=== PATIENT | male | born 1940 | race Caucasian/White ===

== ENCOUNTER 2019-08-26 07:47 | Inpatient (IN) | payer MEDICARE, BC ==
--- NOTE | 2019-08-19 10:31 | HP ---
AMENDED REPORT NOW INCLUDES DESIGNATED COSIGNER HISTORY AND PHYSICAL: DATE OF SURGERY: 08/26/19 DATE OF OFFICE VISIT: 08/18/19 SURGEON: Vernell Tejada MD * (DICTATED BY ZORA PATEL) PROCEDURE: Right total knee arthroplasty. CHIEF COMPLAINT: Right knee pain. HISTORY OF PRESENT ILLNESS: Mr. 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 PAST MEDICAL HISTORY: 1. Macular degeneration. 2. Hypertension. 3. High cholesterol. PAST SURGICAL HISTORY: 1. Right knee arthroscopy. 2. Hernia repair. 3. Right rotator cuff repair. 4. Blepharoplasty. 5. Right ankle surgery. CURRENT MEDICATIONS: 1. Lisinopril 20 mg a day. 2. Atorvastatin calcium 10 mg a day. 3. Amlodipine 2.5 mg a day. 4. Multivitamin. 5. AREDS 2. 6. CoQ10. ALLERGIES: No known drug allergies. FAMILY HISTORY: Cancer. SOCIAL HISTORY: This 79-year-old gentleman lives at [place]. He does not smoke. REVIEW OF SYSTEMS: A complete 14-point review of systems was reviewed with the patient. It is all negative and noncontributory. He denies history of a DVT, PE, hepatitis, HIV, or anesthesia problems. PHYSICAL EXAMINATION GENERAL: He is well-developed, well-nourished in no acute distress. VITAL SIGNS: He stands 69 inches tall, weighs 163 pounds. His blood pressure is 132/82, his heart rate is 58. HEENT: Normocephalic and atraumatic. NECK: Supple. No palpable lymph nodes. PULMONARY: The lungs are clear to auscultation bilaterally. CARDIO: Regular rate and rhythm. Strong S1 and S2. ABDOMEN: Soft, nontender, and nondistended. NEUROLOGIC: He is alert and oriented x3. MUSCULOSKELETAL: Right lower extremity, the skin is intact. There are no open wounds or abrasions. There is a moderate effusion of the right knee joint. He has a some tenderness along the medial and lateral joint line. Range of motion is 10 to 120 degrees of flexion with patellofemoral crepitus, there is a varus deformity of the knee. He is able to dorsiflex and plantarflex. He has a 2+ dorsalis pedis pulse and intact sensation. ASSESSMENT AND PLAN: Mr. Dalal is a 79-year-old gentleman with end- stage osteoarthritis of the right knee. He has failed conservative treatment and elected to proceed with a right total knee arthroplasty. The surgery is scheduled for 08/26/[address] Tejada after I discussed the risks and benefits of the surgery at today's visit and all of his questions were answered. He will follow up with Dr. Tejada 2 weeks after the surgery. ZORA PATEL [id number]/[facility] #: [id number] YVETTE
[~2019-08-26 07:47] MED LIST: Buffered Lidocaine 1% SYRIN* 1 ML/SYRINGE INTRADERM ONE; Dexamethasone IV* 4 MG/ML 1 ML (4 MG) IV SLOW PU ONE; Famotidine IV* 10 MG/ML 2 ML (20 mg) IV ONE; Gabapentin CAP(*) 300 MG PO ONE; Lactated Ringers 1000 ML Bag* 1,000 ML IV SCH; Tranexamic Acid 1 GM/100 mL BAG (PREMIX) outpatient IV SCH
--- OUTSIDE RECORDS SUMMARY | 2019-08-26 08:56 | XMS REPORT | Continuity of Care Document ---
:1940 External Reference #:[id number] Author Name Lona Duckworth MD Address [address] [place] [id number] Problems Active Problems Provider Date Diverticulosis of sigmoid colon Onset: 08/30/2016 Lower eyelid entropion Onset: 07/29/2015 Degenerative joint disease involving multiple joints Onset: 06/07/2009 Hyperlipidemia Onset: 07/14/2009 Essential hypertension Onset: 01/16/2015 Social History Type Date Description Comments Sex Unknown Tobacco Use Start: Unknown End: Patient is a former smoker quit 1964, only smoked Unknown for 2 years Smoking Status Reviewed: 07/14/19 Patient is a former smoker quit 1964, only smoked for 2 years Allergies, Adverse Reactions, Alerts Description No Known Drug Allergies Medications Active Medications SIG Qnty Indications Ordering Provider Date Valacyclovir HCL 1 every 12 20tabs Unknown 04/17/2018 1gm hours Oral; Use Tablets one tablet 12 hours apart x 2 doses of oral herpes infecttion. Amlodipine Besylate Oral; Take 1 90tabs Unknown 10/12/2015 2.5mg Tablet By Mouth Tablets Every Day Atorvastatin Calcium Oral; Take 1 90tabs Unknown 09/11/2015 10mg Tablet By Mouth Tablets Every Day Lisinopril Oral; Take 1 90tabs Unknown 07/27/2014 10mg Tablets Tablet By Mouth Every Day Immunizations CPT Code Status Date Vaccine Lot # [id number] Given 02/18/2018 Flu High Dose 43515 Given 04/15/2017 Flu High Dose 38686 Given 09/23/2016 Tdap - Boostrix/Adacel 95273 Given 03/05/2016 Flu High Dose 90072 Given 07/27/2014 Prevnar 13 89874 Given 03/23/2014 Flu High Dose 05017 Given 02/23/2013 Flu High Dose 69080 Given 03/23/2012 Flu High Dose 32796 Given 03/23/2011 Flu High Dose 18513 Given 07/14/2009 Zoster Shingles Vaccine For Subcutaneous Injection 33272 Given 07/02/2007 Pneumovax - for >=2years - PPSV23 Vital Signs Date Vital Result Comment 07/14/2019 11:09am BP Systolic 130 mmHg BP Diastolic 82 mmHg Height 69.50 inches 5'9.50" Weight 161.00 lb Heart Rate 57 /min Body Temperature 96.7 F O2 % BldC Oximetry 98 % BMI (Body Mass Index) 23.4 kg/m2 01/06/2019 10:51am BP Systolic 122 mmHg Height 69.50 inches 5'9.50" Weight 154.00 lb Heart Rate 50 /min Body Temperature 97.0 F O2 % BldC Oximetry 99 % BMI (Body Mass Index) 22.42 kg/m2 Results Test Acquired Date Facility Test Result H/L Range Note CBC Auto 07/14/2019 [facility] White Blood 5.3 10^3/uL Normal 3.5-10.[address] [place] [address] [phone] Red Blood Count 4.30 10^6/uL Normal 4.18-5.48 Hemoglobin 14.9 g/dL Normal 14.0-18.0 Hematocrit 42 % Normal 42-52 Mean Corpuscular Volume 99 fL High 80-94 Mean Corpuscular Hemoglobin 35 pg High 27-31 Mean Corpuscular HGB Conc 35 g/dL Normal 31-36 Red Cell Distribution Width 14 % Normal 10-15 Platelet Count 94 10^3/uL Low 150-450 1 Mean Platelet Volume 9.8 fL Normal 7.4-10.4 Abs Neutrophils 1.6 10^3/uL Normal 1.5-7.7 Abs Lymphocytes 1.6 10^3/uL Normal 1.0-4.8 Abs Monocytes 2.0 10^3/uL High 0-0.8 Abs Eosinophils 0.1 10^3/uL Normal 0-0.6 Abs Basophils 0.0 10^3/uL Normal 0-0.2 Abs Nucleated RBC 0.0 10^3/uL Granulocyte % 29.9 % Lymphocyte % 29.9 % Monocyte % 38.7 % Eosinophil % 1.4 % Basophil % 0.1 % Nucleated Red Blood Cells % 0.1 Comp Metabolic 07/14/2019 [facility] Sodium 137 mmol/L Normal 135-[address] [place] [address] [phone] Potassium 4.1 mmol/L Normal 3.5-5.0 Chloride 103 mmol/L Normal 101-111 Co2 Carbon Dioxide 28 mmol/L Normal 22-32 Anion Gap 6 mmol/L Normal 2-11 Glucose 77 mg/dL Normal 70-100 Blood Urea Nitrogen 16 mg/dL Normal 6-24 Creatinine 1.18 mg/dL High 0.67-1.17 BUN/Creatinine Ratio 13.6 Normal 8-20 Calcium 8.8 mg/dL Normal 8.6-10.3 Total Protein 7.0 g/dL Normal 6.4-8.9 Albumin 4.4 g/dL Normal 3.2-5.2 Globulin 2.6 g/dL Normal 2-4 Albumin/Globulin Ratio 1.7 Normal 1-3 Total Bilirubin 0.60 mg/dL Normal 0.2-1.0 Alkaline Phosphatase 51 U/L Normal 34-104 Alt 12 U/L Normal 7-52 Ast 17 U/L Normal 13-39 Egfr Non- 59.9 >60 Egfr 72.4 >60 2 1 Consistent with Previous Results Reported on 12/23/17 2 Because ethnic data is not always readily available, this report includes an eGFR for both -Americans and non- Americans. The National Kidney Disease Education Program (NKDEP) does not endorse the use of the MDRD equation for patients that are not between the ages of 18 and 70, are , have extremes of body size, muscle mass, or nutritional status, or are non- or non-. According to the National Kidney Foundation, irrespective of diagnosis, the stage of the disease is based on the level of kidney function: Stage Description GFR(mL/min/1.73 m(2)) 1 Kidney damage with normal or decreased GFR 90 2 Kidney damage with mild decrease in GFR 60-89 3 Moderate decrease in GFR 30-59 4 Severe decrease in GFR 15-29 5 Kidney failure <15 (or dialysis) Procedures Date Code Description Status 07/14/2019 18669 Electrocardiogram Complete Completed Medical Devices Description No Information Available Encounters Type Date Location Provider Dx Diagnosis Office Visit 07/14/2019 [facility] Main Lona Duckworth MD Z01.818 Encounter for other 11:00a preprocedural examination Assessments Date Code Description Provider 07/14/2019 Z01.818 Encounter for other preprocedural examination Lona Duckworth MD Plan of Treatment No Information Available Functional Status Description No Information Available Mental Status Description No Information Available Referrals Description No Information Available
--- OUTSIDE RECORDS SUMMARY | 2019-08-26 08:56 | XMS REPORT | Continuity of Care Document ---
:1940 External Reference #:[id number] Author Name Lona Duckworth MD Address [address] [place] [id number] Problems Active Problems Provider Date Diverticulosis of [...] CPT Code Status Date Vaccine Lot # [id number] Given 02/18/2018 Flu High Dose 18037 Given 04/15/2017 Flu High Dose 85659 Given 09/23/2016 Tdap - Boostrix/Adacel 27042 Given 03/05/2016 Flu High Dose 33592 Given 07/27/2014 Prevnar 13 69433 Given 03/23/2014 Flu High Dose 58730 Given 02/23/2013 Flu High Dose 58701 Given 03/23/2012 Flu High Dose 26106 Given 03/23/2011 Flu High Dose 31018 Given 07/14/2009 Zoster Shingles Vaccine For Subcutaneous Injection 28362 Given 07/02/2007 Pneumovax - for >=2years - [...] Result H/L Range Note CBC Auto 07/14/2019 [facility] White Blood 5.3 10^3/uL Normal 3.5-10.[address] [place] [address] [phone] Red Blood Count 4.30 10^6/uL Normal 4.18-5.48 [...] Blood Cells % 0.1 Comp Metabolic 07/14/2019 [facility] Sodium 137 mmol/L Normal 135-[address] [place] [address] [phone] Potassium 4.1 mmol/L Normal 3.5-5.0 Chloride 103 [...] dialysis) Procedures Date Code Description Status 07/14/2019 23152 Electrocardiogram Complete Completed Medical Devices Description No Information Available Encounters Type Date Location Provider Dx Diagnosis Office Visit 07/14/2019 [facility] Main Lona Duckworth MD Z01.818 Encounter for other 11:00a preprocedural examination Assessments Date Code Description Provider 07/14/2019 Z01.818 Encounter for other preprocedural examination Lona Duckworth MD Plan of Treatment No Information Available Functional Status Description No Information Available Mental Status Description No Information Available Referrals Description No Information Available
[2019-08-26] MEDS ORDERED: Famotidine IV* 10 MG/ML 2 ML (20 mg) ONE (09:37)
[2019-08-26] MEDS ORDERED: Gabapentin CAP(*) 300 MG ONE (09:37)
[2019-08-26] MEDS ORDERED: Dexamethasone IV* 4 MG/ML 1 ML (4 MG) ONE (09:37)
[2019-08-26] MEDS ORDERED: ceFAZolin 2 GM PREMIX in ORs 2 GM/50 ML BAG ONE (09:37)
[2019-08-26] MEDS ORDERED: Buffered Lidocaine 1% SYRIN* 1 ML/SYRINGE INTRADERM ONE (09:44)
[2019-08-26 10:33] LABS: ABS Eosinophils 0.1 10^3/ul (0-0.6); ABS Lymphocytes 1.3 10^3/ul (1.0-4.8); ABS Monocytes 1.7 10^3/ul (0-0.8); ABS Neutrophils 1.5 10^3/ul (1.5-7.7); Eosinophil % 1.7 %; Hematocrit 42 % (42-52); Hemoglobin 14.5 g/dL (14.0-18.0); Lymphocyte % 29.1 %; Mean Corpuscular HGB Conc 34 g/dL (31-36); Mean Corpuscular Hemoglobin 34 pg (27-31); Mean Corpuscular Volume 99 fL (80-94); Mean Platelet Volume 8.9 fL (7.4-10.4); Nucleated Red Blood Cells % 0.1; Platelet Count 88 10^3/uL (150-450); Red Blood Count 4.27 10^6 /uL (4.18-5.48); Red Cell Distribution Width 14 % (10-15); White Blood Count 4.6 10^3/uL (3.5-10.8)
[2019-08-26] MEDS ORDERED: ROPIVACAINE 5 MG/ML 30 ML BTL (0.5%) ONE ×2 (11:20→11:35)
[2019-08-26] MEDS ORDERED: Midazolam* 1 MG/ML 2 ML VIAL (2 MG) ONE (11:39)
[2019-08-26] MEDS ORDERED: fentaNYL* 50 MCG/ML 2 ML VIAL (100 MCG VIAL) ONE ×2 (11:39→13:43)
[2019-08-26] MEDS ORDERED: Propofol* 10 MG/ML 20 ML BTL ONE (11:39)
[2019-08-26] MEDS ORDERED: Lidocaine 2% PF * 5 ML VIAL ONE (11:39)
[2019-08-26] MEDS ORDERED: fentaNYL* 50 MCG/ML 2 ML VIAL (100 MCG VIAL) IV PRN (12:19)
[2019-08-26] MEDS ORDERED: HYDROcodone/ACETAMIN 5-325 MG* 1 TAB PO PRN (12:19)
[2019-08-26] MEDS ORDERED: oxyCODONE/Acetamin 5/325 MG* TAB PO PRN ×2 (12:19→13:56)
[2019-08-26] MEDS ORDERED: Naloxone* 0.4 MG/ML 1 ML VIAL IV PRN (12:19)
[2019-08-26] MEDS ORDERED: DiMENhydriNATE IV* 50 MG/ML VIAL IV PUSH PRN (12:19)
[2019-08-26] MEDS ORDERED: KETAMINE HCL* 50 MG/ML 10 ML VIAL ONE (12:37)
[2019-08-26] MEDS ORDERED: EPHEDrine (Pressors)* 50 MG/ML VIAL ONE (12:51)
[2019-08-26] MEDS ORDERED: Acetaminophen TAB* 325 MG PO PRN (13:56)
[2019-08-26] MEDS ORDERED: Ondansetron ODT TAB* 4 MG PO PRN (13:56)
[2019-08-26] MEDS ORDERED: Magnesium Hydroxide LIQ* 30 ML UDC PO PRN (13:56)
[2019-08-26] MEDS ORDERED: Morphine INJ* 2 MG/ML 1 ML SYRINGE (TWO MG - NEW SYRINGE VERSION) IV PRN (13:56)
[2019-08-26] MEDS ORDERED: Ondansetron INJ* 2 MG/ML VIAL IV PRN (13:56)
[2019-08-26] MEDS ORDERED: diPHENhydraMINE PO* 25 MG PO PRN (13:56)
[2019-08-26] MEDS ORDERED: diPHENhydraMINE IV* 50 MG/ML 1 ml VIAL (BENADRYL) IV PRN (13:56)
[2019-08-26] MEDS ORDERED: Ondansetron INJ* 2 MG/ML VIAL ONE (14:02)
[2019-08-26] MEDS ORDERED: oxyCODONE/Acetamin 5/325 MG* TAB ONE (16:14)
[2019-08-26] MEDS: Cyclobenzaprine TAB* 10 MG PO PRN (17:20)
[2019-08-26] MEDS: oxyCODONE TAB* 5 MG TAB PO PRN (17:20)
[2019-08-26] MEDS: Lactated Ringers 1000 ML Bag* 1,000 ML IV SCH (17:23)
[2019-08-26] MEDS ORDERED: Atorvastatin* 10 MG TAB PO SCH (18:00)
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
--- NOTE | 2019-08-26 19:47 | CONS ---
CC: Dr. Holley; Dr. Tejada * CONSULTATION REPORT: DATE OF CONSULT: 08/26/19 PRIMARY CARE PROVIDER: Dr. Holley. REQUESTING PROVIDER: Dr. Tejada. REASON FOR CONSULT: Medical co-management. HISTORY OF PRESENT ILLNESS: Mr. Dalal is a 79-year-old male with a history of hypertension and hyperlipidemia, who is admitted following an elective right total knee arthroplasty with Dr. Tejada today. The patient states that currently he is doing well. He has moderate discomfort in the right knee; however, he states that it is tolerable. He denies any nausea, vomiting, or abdominal pain. He denies any chest pain or shortness of breath. He is still feeling somewhat sleepy from anesthesia. PAST MEDICAL HISTORY: 1. Macular degeneration. 2. Hypertension. 3. Hyperlipidemia. 4. Chronic thrombocytopenia, followed by Dr. Zapata. PAST SURGICAL HISTORY: 1. Right knee arthroplasty. 2. Right knee arthroscopy. 3. Hernia repair. 4. Right rotator cuff repair. 5. Blepharoplasty. 6. Right ankle surgery. MEDICATIONS: 1. CoQ10 200 mg p.o. b.i.d. 2. PreserVision 1 tab p.o. b.i.d. 3. Lisinopril 20 mg p.o. daily. 4. Lipitor 10 mg p.o. q.h.s. 5. Amlodipine 2.5 mg p.o. daily. ALLERGIES: No known drug allergies. FAMILY HISTORY: Mom had a history of an irregular heart rate. Dad had a history of hypertension. 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 He is . He has no children. He does not smoke. He drinks 4 ounces of red wine most days. REVIEW OF SYSTEMS: A complete 11-system review of systems is obtained. Pertinent positives and negatives are as per HPI and otherwise negative. PHYSICAL EXAM: Blood pressure 143/86, pulse 64, respirations 16, temp 97, O2 sat 100% on room air. General: The patient is a well-developed, elderly male seen lying in the bed, in no acute distress. HEENT: Pupils are equal. Extraocular muscles are intact. Oropharynx is clear. Cardiac: Normal S1, S2. Regular rate and rhythm. I do not appreciate any murmurs. There is no lower extremity edema. Pulmonary: Lungs are clear to auscultation anteriorly and at the lateral bases. Abdomen: Bowel sounds are present. Abdomen is soft, nontender, nondistended. Musculoskeletal: Right knee has postop dressing and Cryo unit in place. Skin: Visible areas of skin are warm, dry, and without rash. Neuro: Upper extremity strength is normal. Lower extremity strength is not tested. ASSESSMENT AND PLAN: Mr. Dalal is a 79-year-old male with a history of hypertension, hyperlipidemia, and chronic thrombocytopenia, who underwent right total knee arthroplasty today with Dr. Tejada and is now being seen by myself for medical co-management. 1. Status post right total knee arthroplasty. Management including pain control and DVT prophylaxis as per Orthopedics. 2. Hypertension. Blood pressure is under good control. I am going to continue the patient's amlodipine 2.5 mg daily and lisinopril 20 mg p.o. daily. 3. Hyperlipidemia. Continue Lipitor 10 mg p.o. q.h.s. 4. DVT prophylaxis: The patient is to start on Eliquis 2.5 mg p.o. b.i.d. tomorrow morning. 5. The patient is a full code. [id number]/[facility] #: [id number] [facility]
[2019-08-26] MEDS: [UNRECOGNIZED DRUG - OTHER] PO SCH (20:37)
[2019-08-26] MEDS: Magnesium Hydroxide LIQ* 30 ML UDC PO SCH (20:45)
[2019-08-26] MEDS: Docusate CAP* 100 MG PO SCH (20:46)
[2019-08-27] MEDS: ceFAZolin 1 GM* X 2 DOSES POST-OP Q8H (AddVan) IVPB SCH ×4 (00:13→09:29)
[2019-08-27] MEDS: oxyCODONE TAB* 5 MG TAB PO PRN (03:09)
[2019-08-27] MEDS: Lactated Ringers 1000 ML Bag* 1,000 ML IV SCH (03:10)
[2019-08-27 05:32] LABS: Hematocrit 38 % (42-52); Hemoglobin 13.3 g/dL (14.0-18.0); Mean Platelet Volume 8.9 fL (7.4-10.4); Platelet Count 86 10^3/uL (150-450)
[2019-08-27 05:42] LABS: BUN/Creatinine Ratio 16.1 (8-20); Calcium 8.6 mg/dL (8.6-10.3); EGFR African American 72.4 (>60); EGFR Non-African American 59.9 (>60); Potassium 4.3 mmol/L (3.5-5.0)
[2019-08-27] MEDS: oxyCODONE/Acetamin 5/325 MG* TAB PO PRN ×2 (06:25→14:47)
[2019-08-27] MEDS: [UNRECOGNIZED DRUG - OTHER] PO SCH (08:18)
[2019-08-27] MEDS: Magnesium Hydroxide LIQ* 30 ML UDC PO SCH (08:18)
[2019-08-27] MEDS: Docusate CAP* 100 MG PO SCH (08:19)
[2019-08-27] MEDS ORDERED: Vitamin THERAPEUTIC TAB PO SCH (09:00)
[2019-08-27] MEDS ORDERED: Apixaban* 2.5 MG TAB PO SCH (09:00)
[2019-08-27] MEDS ORDERED: amLODIPine TAB* 5 MG PO SCH (09:00)
[2019-08-27] MEDS ORDERED: Lisinopril TAB* 10 MG PO SCH (09:00)
--- NOTE | 2019-08-27 10:12 | PN ---
Progress Note - Progress Note Date of Service: 08/27/19 SOAP: Subjective: [Pt was seen this morning laying in bed. Has been doing well with PT today. Feels ready to go. He does complain of pain in his calf with palpation of the calf. He denies any chest pain, SOB, nausea, vomiting. ] Objective: [General: Pt is alert and oriented x3. NAD MSK, RLE: Dressing is c/d/i. +df/pf, NVI, 2+ DP pulse. Pt does state he has increased pain with palpation of the calf on the right. The calf is otherwise soft, no erythema. ] Vital Signs Temp 98.1 F 08/27/19 08:39 Pulse 69 08/27/19 08:39 Resp 18 08/27/19 08:39 BP 112/59 08/27/19 08:39 Pulse Ox 97 08/27/19 08:39 Intake & Output 08/26/19 08/27/19 08/27/19 18:59 06:59 18:59 Intake Total 1900 1895 Output Total 75 1100 Balance 1825 795 Weight 164 lb Intake: IV Fluids 1900 980 LR 1900 980 IVPB 55 ABX - CEFAZOLIN 55 Oral 860 Output: Luciano 1100 Estimated Blood Loss 75 Assessment: [POD 1 RTKA ] Plan: [Venous doppler to r/o DVT, Continue with PT Continue with Eliquis 2.5mg bid Continue with pain medication. Possible DC today should doppler be negative. ]
[2019-08-27] MEDS: Cyclobenzaprine TAB* 10 MG PO PRN (10:30)
[2019-08-27 13:45] VITALS: BP 107/63
--- NOTE | 2019-08-27 15:31 | PN ---
Subjective Date of Service: 08/27/19 Interval History: Pt laying in bed, NAD, sleepy but easily arousable. States that he is having pain to R knee but that it is tolerable with the pain medications that he has been getting. Per ortho plan is for him to go home this afternoon. Was having pain to R calf, DVT ruled out per doppler study. Currently denies any fevers, lightheadedness, CP, SOB, N/V/D, unusual numbness/tingling. He states that he is ready to go and has a plan in place for help when he gets there. Objective Vital Signs - 8 hr 08/27/19 08/27/19 08/27/19 08:38 08:39 10:29 Temperature 98.1 F Pulse Rate 69 Respiratory 18 18 14 Rate Blood Pressure 112/59 (mmHg) O2 Sat by Pulse 97 Oximetry 08/27/19 08/27/19 08/27/19 10:30 11:49 13:17 Temperature 98.2 F Pulse Rate 63 Respiratory 14 16 15 Rate Blood Pressure 114/61 (mmHg) O2 Sat by Pulse 98 Oximetry 08/27/19 08/27/19 08/27/19 13:18 13:19 13:44 Temperature Pulse Rate 61 Respiratory 14 14 Rate Blood Pressure 107/63 (mmHg) O2 Sat by Pulse 96 Oximetry 08/27/19 08/27/19 13:56 14:47 Temperature Pulse Rate Respiratory 14 15 Rate Blood Pressure (mmHg) O2 Sat by Pulse Oximetry Oxygen Devices in Use Now: None Appearance: NAD Eyes: No Scleral Icterus, PERRLA Ears/Nose/Mouth/Throat: Clear Oropharnyx Respiratory: Symmetrical Chest Expansion and Respiratory Effort, Clear to Auscultation Cardiovascular: RRR Abdominal: NL Sounds; No Tenderness; No Distention Extremities: - - 1+ non-pitting edema RLE, no edema LLE Skin: - - incision to R knee covered with dressing, CDI Neurological: Alert and Oriented x 3 Nutrition: Taking PO's Result Diagrams: 08/27/19 04:55 08/27/19 04:55 Assess/Plan/Problems-Billing Assessment: is a 79 yo male with PMHx significant for HTN, hyperlipidemia, chronic thrombocytopenia who had an elective R TKA with on 08/25. - Patient Problems (1) Status post total right knee replacement Status: Acute Code(s): Z96.651 - PRESENCE OF RIGHT ARTIFICIAL KNEE JOINT SNOMED Code(s): 4492841830781 Comment: management per orthopedics (2) HTN (hypertension) Status: Acute Code(s): I10 - ESSENTIAL (PRIMARY) HYPERTENSION SNOMED Code(s) : 03259141 Comment: BPs stable continue amlodipine and lisinopril (3) Hyperlipidemia Status: Acute Code(s): E78.5 - HYPERLIPIDEMIA, UNSPECIFIED SNOMED Code(s): 41504109 Comment: continue atorvastatin (4) Thrombocytopenia Status: Acute Code(s): D69.6 - THROMBOCYTOPENIA, UNSPECIFIED SNOMED Code(s) : 747494581 Comment: chronic condition, stable can f/u with hematology as outpatient (5) Full code status Status: Acute Code(s): Z78.9 - OTHER SPECIFIED HEALTH STATUS SNOMED Code(s) : 027398496 (6) DVT prophylaxis Status: Acute Code(s): DKK1120 - SNOMED Code(s): 517305448 Comment: SCDs, was started on eliquis per ortho, moderate thrombocytopenia with plt count 20968 Status and Disposition: status: stable disposition: SSU, d/c per ortho Attending: Rachelle Dennis
== END 2019-08-27 15:00 | disposition home or self-care (01) | DRG 470 ==
LOC: AA 08:51 → SSU 16:46
PROVIDERS: ADMIT Orthopaedic Surgery Adult Reconstructive Orthopaedic Surgery; ATTEND Orthopaedic Surgery Adult Reconstructive Orthopaedic Surgery
PROC: 0SRC0J9 Replacement of Right Knee Joint with Synthetic Substitute, Cemented, Open Approach (ICD-10-PCS; principal; 2019-08-26 12:00)
DX: M17.11 Unilateral primary osteoarthritis, right knee (principal); H35.30 Unspecified macular degeneration; I10 Essential (primary) hypertension; E78.00 Pure hypercholesterolemia, unspecified; D69.6 Thrombocytopenia, unspecified; E78.5 Hyperlipidemia, unspecified; M79.661 Pain in right lower leg; M25.761 Osteophyte, right knee; Z79.899 Other long term (current) drug therapy
CPT/HCPCS: 36415; 80048; 85014; 85018; 85025; 85049; 88305; 88311; A9270-GY; C1776; J0690; J1100; J2250; J2405; J2704; J2795; J3010

== ENCOUNTER 2022-03-26 09:54 | Inpatient (IN) ==
[2022-03-26 11:09] LABS: RBC Morphology Normal (Normal)
[2022-03-26 11:11] LABS: ABS Basophils 0.1 10^3/ul (0-0.2); ABS Eosinophils 13.6 10^3/ul (0-0.6); ABS Lymphocytes 3.5 10^3/ul (1.0-4.8); ABS Monocytes 235.2 10^3/ul (0-0.8); ABS Neutrophils 37.7 10^3/ul (1.5-7.7); ABS Nucleated RBC 0.7 10^3/ul; Eosinophil % 4.7 %; Hematocrit 28 % (42-52); Hemoglobin 8.9 g/dL (14.0-18.0); Lymphocyte % 1.2 %; Mean Corpuscular HGB Conc 32 g/dL (31-36); Mean Corpuscular Hemoglobin 31 pg (27-31); Mean Corpuscular Volume 100 fL (80-94); Mean Platelet Volume 8.4 fL (7.4-10.4); Nucleated Red Blood Cells % 0.2; Platelet Count 84 10^3/uL (150-450); Red Blood Count 2.84 10^6 /uL (4.18-5.48); Red Cell Distribution Width 17 % (10-15)
[2022-03-26 11:46] LABS: Albumin 3.8 g/dL (3.2-5.2); Albumin/Globulin Ratio 1.4 (1-3); Calcium 8.4 mg/dL (8.6-10.3); Globulin 2.7 g/dL (2-4); Magnesium 2.1 mg/dL (1.9-2.7); Potassium 3.5 mmol/L (3.5-5.0); Total Bilirubin 0.6 mg/dL (0.2-1.0); Total Protein 6.5 g/dL (6.4-8.9)
[2022-03-26 11:52] LABS: High Sensitivity Troponin 1 Hr 31 pg/mL (<20)
[2022-03-26 13:10] LABS: Uric Acid 12.9 mg/dL (4.4-7.6)
[2022-03-26] MEDS ORDERED: Rasburicase 1.5 MG VIAL(NF) IVPB ONE (14:21)
[2022-03-26] MEDS ORDERED: Sodium Bicarb 8.4% Vial 50 ML 100 MEQ in D5W 1000 ml BAG 900 ML IV ONE ×2 (15:27→19:45)
[2022-03-26] MEDS ORDERED: RASBURICASE IVPB ONE (16:00)
[2022-03-26] MEDS ORDERED: NS 0.9% IVPB ONE (16:00)
[2022-03-26] MEDS ORDERED: NORMOSOL-R pH 7.4 1000 mL BAG 1,000 ML IV SCH (17:00)
[2022-03-26] MEDS ORDERED: Enoxaparin 40 MG/0.4 ML SYR SUBCUT SCH (17:00)
[2022-03-26 18:04] LABS: Phosphorus 3.8 mg/dL (2.5-5.0)
[2022-03-26 20:54] LABS: Calcium 8.2 mg/dL (8.6-10.3); Phosphorus 3.9 mg/dL (2.5-5.0); Potassium 3.2 mmol/L (3.5-5.0); Uric Acid 2.2 mg/dL (4.4-7.6); eGFR CKD-EPI 27.3 (>60)
[2022-03-26] MEDS: D5W 1/2 NS 1000 ml BAG 1,000 ML IV SCH (21:15)
[2022-03-26 22:22] LABS: Hepatitis B Surface Ab Not Immune (Immune); Hepatitis C Antibody Negative (Negative)
[2022-03-27 00:36] LABS: Blood Urea Nitrogen 27 mg/dL (6-24); CO2 Carbon Dioxide 26 mmol/L (22-32); Calcium 7.9 mg/dL (8.6-10.3); Chloride 104 mmol/L (101-111); Glucose 222 mg/dL (70-100); LDH 915 U/L (140-271); Phosphorus 3.4 mg/dL (2.5-5.0); Sodium 137 mmol/L (135-145); Uric Acid < 1.7 mg/dL (4.4-7.6); eGFR CKD-EPI 28.9 (>60)
[2022-03-27 00:47] LABS: Anion Gap 7 mmol/L (2-11); Potassium 2.6 mmol/L (3.5-5.0)
[2022-03-27] MEDS ORDERED: Potassium Chlor 20 meq TAB.ER PO ONE ×5 (00:52→20:00)
[2022-03-27 01:01] LABS: Folate 6.39 ng/mL (5.90-24.80)
[2022-03-27 01:02] LABS: Vitamin B12 207 pg/mL (180-914)
[2022-03-27] MEDS: D5W 1/2 NS 1000 ml BAG 1,000 ML IV SCH ×2 (02:09→09:56)
[2022-03-27 06:33] LABS: Calcium 7.8 mg/dL (8.6-10.3); Magnesium 1.9 mg/dL (1.9-2.7); Potassium 3.3 mmol/L (3.5-5.0); eGFR CKD-EPI 29.9 (>60)
[2022-03-27 06:41] LABS: Hematocrit 25 % (42-52); Mean Corpuscular HGB Conc 33 g/dL (31-36); Mean Corpuscular Hemoglobin 32 pg (27-31); Mean Corpuscular Volume 100 fL (80-94); Mean Platelet Volume 7.6 fL (7.4-10.4); Platelet Count 79 10^3/uL (150-450); Red Blood Count 2.47 10^6 /uL (4.18-5.48); Red Cell Distribution Width 17 % (10-15)
[2022-03-27 11:11] LABS: Hepatitis B Surface Antigen Nonreactive (Nonreactive)
[2022-03-27 11:16] LABS: Hepatitis A Ab IgM Negative (Negative)
[2022-03-27 11:17] LABS: Hepatitis B Core IgM Nonreactive (Nonreactive)
[2022-03-27] MEDS ORDERED: fentaNYL 100 mcg/2 ml 50 MCG/ML VIAL ONE (11:18)
[2022-03-27 15:53] LABS: Blood Urea Nitrogen 22 mg/dL (6-24); CO2 Carbon Dioxide 23 mmol/L (22-32); Calcium 7.7 mg/dL (8.6-10.3); Chloride 107 mmol/L (101-111); Glucose 140 mg/dL (70-100); Phosphorus 2.8 mg/dL (2.5-5.0); Sodium 138 mmol/L (135-145); Uric Acid < 1.7 mg/dL (4.4-7.6)
[2022-03-27] MEDS ORDERED: Rasburicase 1.5 MG VIAL(NF) IVPB SCH (16:00)
[2022-03-27 16:07] LABS: Anion Gap 8 mmol/L (2-11); Potassium 2.7 mmol/L (3.5-5.0)
[2022-03-27] MEDS: Heparin 5000 UNITS/ML 1 mL VIAL SUBCUT SCH ×2 (16:56→21:17)
[2022-03-27] MEDS ORDERED: Sodium Bicarb 8.4% Vial 50 ML 150 MEQ in D5W 1000 ml BAG 850 ML IV SCH (18:00)
[2022-03-27] MEDS: NS 0.9% IVPB SCH (18:22)
[2022-03-27] MEDS: RASBURICASE IVPB SCH (18:22)
[2022-03-27] MEDS: Lactated Ringers 1000 ml BAG 1,000 ML IV SCH (20:32)
[2022-03-27] MEDS ORDERED: Ondansetron ODT 4 mg TAB 4 MG TAB SL ONE (21:00)
[2022-03-27] MEDS ORDERED: Heparin 5000 UNITS/ML 1 mL VIAL SUBCUT SCH (21:00)
[2022-03-27 21:44] LABS: Anion Gap 6 mmol/L (2-11); Blood Urea Nitrogen 23 mg/dL (6-24); CO2 Carbon Dioxide 23 mmol/L (22-32); Calcium 7.6 mg/dL (8.6-10.3); Chloride 108 mmol/L (101-111); Glucose 115 mg/dL (70-100); Magnesium 1.9 mg/dL (1.9-2.7); Phosphorus 3.2 mg/dL (2.5-5.0); Potassium 3.9 mmol/L (3.5-5.0); Sodium 137 mmol/L (135-145); Uric Acid < 1.7 mg/dL (4.4-7.6); eGFR CKD-EPI 32.3 (>60)
[2022-03-28 03:34] LABS: Anion Gap 9 mmol/L (2-11); Blood Urea Nitrogen 23 mg/dL (6-24); CO2 Carbon Dioxide 26 mmol/L (22-32); Calcium 7.7 mg/dL (8.6-10.3); Chloride 106 mmol/L (101-111); Glucose 136 mg/dL (70-100); LDH 1185 U/L (140-271); Magnesium 1.8 mg/dL (1.9-2.7); Phosphorus 3.2 mg/dL (2.5-5.0); Sodium 141 mmol/L (135-145); Uric Acid < 1.7 mg/dL (4.4-7.6); eGFR CKD-EPI 31.8 (>60)
[2022-03-28] MEDS: Sodium Bicarb 8.4% Vial 50 ML 150 MEQ in D5W 1000 ml BAG 850 ML IV SCH ×2 (04:05→13:46)
[2022-03-28] MEDS: Lactated Ringers 1000 ml BAG 1,000 ML IV SCH ×2 (04:58→14:17)
[2022-03-28] MEDS: Heparin 5000 UNITS/ML 1 mL VIAL SUBCUT SCH ×3 (05:42→22:00)
[2022-03-28 09:40] LABS: Hematocrit 26 % (42-52); Hemoglobin 8.2 g/dL (14.0-18.0); Mean Corpuscular HGB Conc 32 g/dL (31-36); Mean Corpuscular Hemoglobin 32 pg (27-31); Mean Corpuscular Volume 100 fL (80-94); Platelet Count 80 10^3/uL (150-450); Red Blood Count 2.54 10^6 /uL (4.18-5.48); Red Cell Distribution Width 17 % (10-15); White Blood Count 206.7 10^3/uL (3.5-10.8)
[2022-03-28 09:56] LABS: Anion Gap 10 mmol/L (2-11); Blood Urea Nitrogen 21 mg/dL (6-24); CO2 Carbon Dioxide 27 mmol/L (22-32); Calcium 7.8 mg/dL (8.6-10.3); Chloride 105 mmol/L (101-111); Glucose 161 mg/dL (70-100); Magnesium 1.7 mg/dL (1.9-2.7); Phosphorus 2.9 mg/dL (2.5-5.0); Potassium 3.6 mmol/L (3.5-5.0); Sodium 142 mmol/L (135-145); Uric Acid < 1.7 mg/dL (4.4-7.6); eGFR CKD-EPI 32.5 (>60)
[2022-03-28] MEDS ORDERED: Lactated Ringers 1000 ml BAG 1,000 ML IV SCH (10:19)
[2022-03-28] MEDS ORDERED: Magnesium Sulfate 2 gm BAG 2 GM/50 ML BAG IVPB ONE (11:27)
[2022-03-28] MEDS ORDERED: Ondansetron 4 mg VIAL 2 MG/ML 2 ml VIAL IV ONE (16:46)
[2022-03-28] MEDS: RASBURICASE IVPB SCH (18:54)
[2022-03-28] MEDS: NS 0.9% IVPB SCH (18:54)
[2022-03-28 18:58] LABS: Anion Gap 6 mmol/L (2-11); CO2 Carbon Dioxide 29 mmol/L (22-32); Calcium 7.7 mg/dL (8.6-10.3); Chloride 106 mmol/L (101-111); Magnesium 2.2 mg/dL (1.9-2.7); Potassium 3.9 mmol/L (3.5-5.0); Sodium 141 mmol/L (135-145)
[2022-03-28 19:03] LABS: Blood Urea Nitrogen 19 mg/dL (6-24); Glucose 99 mg/dL (70-100); Phosphorus 3.4 mg/dL (2.5-5.0); Uric Acid < 1.7 mg/dL (4.4-7.6); eGFR CKD-EPI 31.2 (>60)
[2022-03-29] MEDS: Lactated Ringers 1000 ml BAG 1,000 ML IV SCH ×3 (01:26→21:33)
[2022-03-29 03:49] LABS: Anion Gap 10 mmol/L (2-11); Blood Urea Nitrogen 21 mg/dL (6-24); CO2 Carbon Dioxide 26 mmol/L (22-32); Calcium 7.8 mg/dL (8.6-10.3); Chloride 105 mmol/L (101-111); Glucose 121 mg/dL (70-100); Magnesium 2.1 mg/dL (1.9-2.7); Phosphorus 3.8 mg/dL (2.5-5.0); Potassium 3.5 mmol/L (3.5-5.0); Sodium 141 mmol/L (135-145); Uric Acid < 1.7 mg/dL (4.4-7.6); eGFR CKD-EPI 26.9 (>60)
[2022-03-29] MEDS: Heparin 5000 UNITS/ML 1 mL VIAL SUBCUT SCH ×3 (05:26→21:35)
[2022-03-29 09:22] LABS: Hematocrit 25 % (42-52); Hemoglobin 7.7 g/dL (14.0-18.0); Mean Corpuscular HGB Conc 32 g/dL (31-36); Mean Corpuscular Hemoglobin 31 pg (27-31); Mean Corpuscular Volume 100 fL (80-94); Mean Platelet Volume 7.9 fL (7.4-10.4); Platelet Count 78 10^3/uL (150-450); Red Blood Count 2.46 10^6 /uL (4.18-5.48); Red Cell Distribution Width 17 % (10-15)
[2022-03-29] MEDS ORDERED: Lactated Ringers 1000 ml BAG 1,000 ML IV SCH (11:08)
[2022-03-29] MEDS ORDERED: Furosemide 20 mg/2 ml IV VIAL IV ONE ×2 (11:08→13:51)
[2022-03-29 18:53] LABS: Anion Gap 5 mmol/L (2-11); Blood Urea Nitrogen 22 mg/dL (6-24); CO2 Carbon Dioxide 27 mmol/L (22-32); Calcium 7.8 mg/dL (8.6-10.3); Chloride 107 mmol/L (101-111); Glucose 165 mg/dL (70-100); Magnesium 1.9 mg/dL (1.9-2.7); Phosphorus 4.8 mg/dL (2.5-5.0); Potassium 3.4 mmol/L (3.5-5.0); Sodium 139 mmol/L (135-145); Uric Acid < 1.7 mg/dL (4.4-7.6); eGFR CKD-EPI 28.2 (>60)
[2022-03-30 00:41] LABS: Anion Gap 9 mmol/L (2-11); Blood Urea Nitrogen 24 mg/dL (6-24); CO2 Carbon Dioxide 25 mmol/L (22-32); Calcium 7.8 mg/dL (8.6-10.3); Chloride 106 mmol/L (101-111); Glucose 108 mg/dL (70-100); Magnesium 1.9 mg/dL (1.9-2.7); Phosphorus 5.6 mg/dL (2.5-5.0); Potassium 3.8 mmol/L (3.5-5.0); Sodium 140 mmol/L (135-145); Uric Acid < 1.7 mg/dL (4.4-7.6); eGFR CKD-EPI 27.4 (>60)
[2022-03-30] MEDS: Lactated Ringers 1000 ml BAG 1,000 ML IV SCH ×2 (06:12→17:30)
[2022-03-30] MEDS: Heparin 5000 UNITS/ML 1 mL VIAL SUBCUT SCH ×3 (06:14→21:23)
[2022-03-30 07:35] LABS: Anion Gap 8 mmol/L (2-11); Blood Urea Nitrogen 23 mg/dL (6-24); CO2 Carbon Dioxide 27 mmol/L (22-32); Calcium 7.9 mg/dL (8.6-10.3); Chloride 107 mmol/L (101-111); Glucose 103 mg/dL (70-100); Magnesium 1.8 mg/dL (1.9-2.7); Phosphorus 5.6 mg/dL (2.5-5.0); Potassium 3.4 mmol/L (3.5-5.0); Sodium 142 mmol/L (135-145); Uric Acid < 1.7 mg/dL (4.4-7.6); eGFR CKD-EPI 28.6 (>60)
[2022-03-30 07:36] LABS: Hematocrit 23 % (42-52); Hemoglobin 7.4 g/dL (14.0-18.0); Mean Corpuscular HGB Conc 32 g/dL (31-36); Mean Corpuscular Hemoglobin 32 pg (27-31); Mean Corpuscular Volume 100 fL (80-94); Mean Platelet Volume 7.7 fL (7.4-10.4); Platelet Count 72 10^3/uL (150-450); Red Blood Count 2.31 10^6 /uL (4.18-5.48); Red Cell Distribution Width 17 % (10-15); White Blood Count 252.7 10^3/uL (3.5-10.8)
[2022-03-30] MEDS ORDERED: Magnesium Sulfate 2 gm BAG 2 GM/50 ML BAG IVPB ONE (08:12)
[2022-03-30] MEDS ORDERED: DECITABINE IVPB SCH (09:00)
[2022-03-30 09:06] LABS: Anisocytosis 1+
[2022-03-30 09:25] LABS: ABS Neutrophils 5.1 10^3/ul (1.5-7.7)
[2022-03-30 09:26] LABS: ABS Lymphocytes 5.1 10^3/ul (1.0-4.8)
[2022-03-30 12:48] LABS: Calcium 7.9 mg/dL (8.6-10.3); Magnesium 2.5 mg/dL (1.9-2.7); Phosphorus 4.7 mg/dL (2.5-5.0); Uric Acid 1.8 mg/dL (4.4-7.6); eGFR CKD-EPI 28.9 (>60)
[2022-03-30] MEDS ORDERED: Potassium Chlor 20 meq TAB.ER PO ONE (13:17)
[2022-03-30] MEDS ORDERED: AZACITIDINE IVPB SCH (15:00)
[2022-03-30] MEDS ORDERED: NS 0.9% IVPB SCH (15:00)
[2022-03-30] MEDS: NS 0.9% IVPB SCH (15:38)
[2022-03-30] MEDS: AZACITIDINE IVPB SCH (15:38)
[2022-03-30] MEDS ORDERED: Ondansetron 4 mg VIAL 2 MG/ML 2 ml VIAL IV PRN (17:44)
[2022-03-30 21:21] LABS: Anion Gap 11 mmol/L (2-11); Blood Urea Nitrogen 24 mg/dL (6-24); CO2 Carbon Dioxide 25 mmol/L (22-32); Calcium 7.8 mg/dL (8.6-10.3); Chloride 105 mmol/L (101-111); Glucose 119 mg/dL (70-100); Magnesium 2.1 mg/dL (1.9-2.7); Phosphorus 4.8 mg/dL (2.5-5.0); Potassium 3.5 mmol/L (3.5-5.0); Sodium 141 mmol/L (135-145); Uric Acid < 1.7 mg/dL (4.4-7.6); eGFR CKD-EPI 28.9 (>60)
[2022-03-31] MEDS: Lactated Ringers 1000 ml BAG 1,000 ML IV SCH ×3 (01:50→22:31)
[2022-03-31] MEDS: Heparin 5000 UNITS/ML 1 mL VIAL SUBCUT SCH ×3 (05:55→21:49)
[2022-03-31 06:17] LABS: Calcium 7.5 mg/dL (8.6-10.3); Magnesium 1.8 mg/dL (1.9-2.7); Phosphorus 5.2 mg/dL (2.5-5.0); Potassium 3.6 mmol/L (3.5-5.0); Uric Acid 2.1 mg/dL (4.4-7.6); eGFR CKD-EPI 31.8 (>60)
[2022-03-31] MEDS ORDERED: Magnesium Sulfate IV 3 GM in NS 0.9% 100 ml BAG 100 ML IVPB ONE (10:12)
[2022-03-31 10:40] LABS: Hematocrit 24 % (42-52); Hemoglobin 7.2 g/dL (14.0-18.0); Mean Corpuscular HGB Conc 30 g/dL (31-36); Mean Corpuscular Hemoglobin 31 pg (27-31); Mean Corpuscular Volume 103 fL (80-94); Platelet Count 71 10^3/uL (150-450); Red Blood Count 2.35 10^6 /uL (4.18-5.48); Red Cell Distribution Width 20 % (10-15); White Blood Count 223.5 10^3/uL (3.5-10.8)
[2022-03-31 11:10] LABS: Anisocytosis 1+
[2022-03-31 11:11] LABS: Polychromasia 1+
[2022-03-31 11:14] LABS: ABS Lymphocytes 8.9 10^3/ul (1.0-4.8); ABS Neutrophils 11.2 10^3/ul (1.5-7.7)
[2022-03-31] MEDS: Ondansetron 4 mg VIAL 2 MG/ML 2 ml VIAL IV PRN (15:10)
[2022-03-31] MEDS: NS 0.9% IVPB SCH (15:24)
[2022-03-31] MEDS: AZACITIDINE IVPB SCH (15:24)
[2022-03-31 20:14] LABS: Calcium 7.7 mg/dL (8.6-10.3); Magnesium 2.6 mg/dL (1.9-2.7); Phosphorus 5.9 mg/dL (2.5-5.0); Potassium 3.4 mmol/L (3.5-5.0); Uric Acid 2.3 mg/dL (4.4-7.6); eGFR CKD-EPI 28.9 (>60)
[2022-03-31 20:27] LABS: Hematocrit 28 % (42-52); Hemoglobin 8.9 g/dL (14.0-18.0); Mean Corpuscular HGB Conc 32 g/dL (31-36); Mean Corpuscular Hemoglobin 30 pg (27-31); Mean Corpuscular Volume 95 fL (80-94); Mean Platelet Volume 7.8 fL (7.4-10.4); Platelet Count 58 10^3/uL (150-450); Red Blood Count 2.94 10^6 /uL (4.18-5.48); Red Cell Distribution Width 18 % (10-15)
[2022-03-31] MEDS ORDERED: Furosemide 20 mg/2 ml IV VIAL IV ONE (21:37)
[2022-03-31] MEDS ORDERED: Furosemide 20 mg/2 ml IV VIAL IV SLOW PU ONE (22:01)
[2022-03-31 23:11] LABS: Calcium 7.8 mg/dL (8.6-10.3); Magnesium 2.4 mg/dL (1.9-2.7); Phosphorus 5.6 mg/dL (2.5-5.0); Potassium 3.6 mmol/L (3.5-5.0); Uric Acid 2.5 mg/dL (4.4-7.6); eGFR CKD-EPI 27.6 (>60)
[2022-04-01 08:36] LABS: Hematocrit 27 % (42-52); Hemoglobin 8.6 g/dL (14.0-18.0); Mean Corpuscular HGB Conc 32 g/dL (31-36); Mean Corpuscular Hemoglobin 31 pg (27-31); Mean Corpuscular Volume 95 fL (80-94); Mean Platelet Volume 8.4 fL (7.4-10.4); Platelet Count 56 10^3/uL (150-450); Red Cell Distribution Width 18 % (10-15); White Blood Count 217.7 10^3/uL (3.5-10.8)
[2022-04-01 08:49] LABS: Magnesium 2.3 mg/dL (1.9-2.7); Potassium 3.5 mmol/L (3.5-5.0); Uric Acid 3.1 mg/dL (4.4-7.6); eGFR CKD-EPI 27.2 (>60)
[2022-04-01] MEDS: Heparin 5000 UNITS/ML 1 mL VIAL SUBCUT SCH ×3 (09:01→21:13)
[2022-04-01] MEDS: Lactated Ringers 1000 ml BAG 1,000 ML IV SCH ×2 (09:30→20:52)
[2022-04-01 11:07] LABS: ABS Eosinophils 0.5 10^3/ul (0-0.6); ABS Lymphocytes 5.3 10^3/ul (1.0-4.8); ABS Monocytes 195.9 10^3/ul (0-0.8); ABS Neutrophils 13.8 10^3/ul (1.5-7.7); Eosinophil % 0.2 %; Lymphocyte % 2.5 %; Nucleated Red Blood Cells % 0.5
[2022-04-01 11:38] LABS: RBC Morphology Normal (Normal)
[2022-04-01] MEDS: Ondansetron 4 mg VIAL 2 MG/ML 2 ml VIAL IV PRN ×2 (12:42→17:17)
[2022-04-01] MEDS: AZACITIDINE IVPB SCH (15:20)
[2022-04-01] MEDS: NS 0.9% IVPB SCH (15:20)
[2022-04-01 18:33] LABS: Phosphorus 6.6 mg/dL (2.5-5.0)
[2022-04-01] MEDS ORDERED: Metoprolol Tartrate 5 mg VIAL 5 ml VIAL (1 mg/ml) IV ONE (21:00)
[2022-04-01 21:46] LABS: Urine Appearance Cloudy; Urine Bilirubin Negative (Negative); Urine Blood 2+ (Negative); Urine Color Yellow; Urine Glucose Negative (Negative); Urine Ketones Negative (Negative); Urine Nitrite Negative (Negative); Urine Protein 1+(30 mg/dL) (Negative); Urine Urobilinogen Negative (Negative)
[2022-04-01 22:27] LABS: Urine White Blood Cell Trace(0-5/hpf) (Absent)
[2022-04-01 22:28] LABS: Urine Bacteria Absent (Absent); Urine Red Blood Cell Trace(0-2/hpf) (Absent); Urine Squamous Epithelial Cell Present (Absent)
[2022-04-01] MEDS ORDERED: Furosemide 20 mg/2 ml IV VIAL IV SLOW PU ONE (22:53)
[2022-04-02] MEDS: Heparin 5000 UNITS/ML 1 mL VIAL SUBCUT SCH ×3 (06:35→22:03)
[2022-04-02 06:59] LABS: Hematocrit 26 % (42-52); Hemoglobin 8.3 g/dL (14.0-18.0); Mean Corpuscular HGB Conc 32 g/dL (31-36); Mean Corpuscular Hemoglobin 31 pg (27-31); Mean Corpuscular Volume 95 fL (80-94); Mean Platelet Volume 8.5 fL (7.4-10.4); Platelet Count 44 10^3/uL (150-450); Red Blood Count 2.73 10^6 /uL (4.18-5.48); Red Cell Distribution Width 19 % (10-15); White Blood Count 218.8 10^3/uL (3.5-10.8)
[2022-04-02 07:01] LABS: Albumin 3.3 g/dL (3.2-5.2); Calcium 7.8 mg/dL (8.6-10.3); Magnesium 2.1 mg/dL (1.9-2.7); Potassium 4.4 mmol/L (3.5-5.0)
[2022-04-02 07:08] LABS: Albumin/Globulin Ratio 1.5 (1-3); Globulin 2.2 g/dL (2-4); Phosphorus 7.6 mg/dL (2.5-5.0); Total Protein 5.5 g/dL (6.4-8.9); Uric Acid 3.9 mg/dL (4.4-7.6); eGFR CKD-EPI 26.3 (>60)
[2022-04-02] MEDS ORDERED: Furosemide 40 mg/4 ml IV VIAL IV ONE (09:03)
[2022-04-02 09:50] LABS: Anisocytosis 1+
[2022-04-02 09:52] LABS: BM Referral Reason AML?
[2022-04-02 09:59] LABS: ABS Lymphocytes 13.1 10^3/ul (1.0-4.8); ABS Neutrophils 10.9 10^3/ul (1.5-7.7)
[2022-04-02] MEDS: AZACITIDINE IVPB SCH (15:11)
[2022-04-02] MEDS: NS 0.9% IVPB SCH (15:11)
[2022-04-02 15:22] LABS: Hematocrit 28 % (42-52); Mean Corpuscular HGB Conc 32 g/dL (31-36); Mean Corpuscular Hemoglobin 31 pg (27-31); Mean Corpuscular Volume 95 fL (80-94); Red Blood Count 2.92 10^6 /uL (4.18-5.48); Red Cell Distribution Width 18 % (10-15); White Blood Count 211.3 10^3/uL (3.5-10.8)
[2022-04-02 15:38] LABS: Calcium 7.9 mg/dL (8.6-10.3); Magnesium 2.1 mg/dL (1.9-2.7); Phosphorus 7.4 mg/dL (2.5-5.0); Potassium 3.3 mmol/L (3.5-5.0); Uric Acid 4.2 mg/dL (4.4-7.6); eGFR CKD-EPI 25.7 (>60)
[2022-04-02] MEDS: Ondansetron 4 mg VIAL 2 MG/ML 2 ml VIAL IV PRN (15:39)
[2022-04-02] MEDS: Metoprolol Tartrate 5 mg VIAL 5 ml VIAL (1 mg/ml) IV PRN ×2 (16:10→21:56)
[2022-04-02 16:13] LABS: Mean Platelet Volume 8.8 fL (7.4-10.4); Platelet Count 45 10^3/uL (150-450)
[2022-04-02 16:31] LABS: Anisocytosis 1+
[2022-04-02] MEDS ORDERED: Potassium Chlor 20 meq TAB.ER PO ONE (16:39)
[2022-04-02] MEDS ORDERED: Metoprolol Tartrate 5 mg VIAL 5 ml VIAL (1 mg/ml) IV PRN (23:05)
[2022-04-03] MEDS: Heparin 5000 UNITS/ML 1 mL VIAL SUBCUT SCH ×3 (06:08→21:16)
[2022-04-03 07:26] LABS: Albumin 3.1 g/dL (3.2-5.2); Albumin/Globulin Ratio 1.4 (1-3); Calcium 7.8 mg/dL (8.6-10.3); Globulin 2.2 g/dL (2-4); Magnesium 2.2 mg/dL (1.9-2.7); Phosphorus 9.2 mg/dL (2.5-5.0); Potassium 3.7 mmol/L (3.5-5.0); Total Protein 5.3 g/dL (6.4-8.9); Uric Acid 5.4 mg/dL (4.4-7.6); eGFR CKD-EPI 25.5 (>60)
[2022-04-03] MEDS ORDERED: Prochlorperazine 5 mg/ml 2 ml VIAL (10 mg) IV PRN (09:19)
[2022-04-03] MEDS: Furosemide 40 mg/4 ml IV VIAL IV SCH (10:02)
[2022-04-03 10:04] LABS: Acanthocytes 1+; Anisocytosis 1+; Burr Cells 2+
[2022-04-03 10:08] LABS: Hematocrit 27 % (42-52); Hemoglobin 8.9 g/dL (14.0-18.0); Mean Corpuscular HGB Conc 33 g/dL (31-36); Mean Corpuscular Hemoglobin 31 pg (27-31); Mean Corpuscular Volume 95 fL (80-94); Mean Platelet Volume 9.2 fL (7.4-10.4); Platelet Count 39 10^3/uL (150-450); Red Blood Count 2.82 10^6 /uL (4.18-5.48); Red Cell Distribution Width 18 % (10-15); White Blood Count 161.4 10^3/uL (3.5-10.8)
[2022-04-03 10:13] LABS: ABS Lymphocytes 1.6 10^3/ul (1.0-4.8); ABS Neutrophils 16.1 10^3/ul (1.5-7.7)
[2022-04-03 10:14] LABS: AMLAF Reason for Referral AML?; AMLAF Result Summary Normal
[2022-04-03] MEDS ORDERED: Rasburicase 1.5 MG VIAL(NF) IVPB SCH (11:00)
[2022-04-03] MEDS ORDERED: RASBURICASE IVPB SCH (12:00)
[2022-04-03] MEDS ORDERED: NS 0.9% IVPB SCH (12:00)
[2022-04-03] MEDS ORDERED: VENETOCLAX 100 MG PO SCH ×2 (14:00)
[2022-04-03] MEDS: VENETOCLAX 100 MG PO SCH (14:25)
[2022-04-03] MEDS: NS 0.9% IVPB SCH (15:14)
[2022-04-03] MEDS: AZACITIDINE IVPB SCH (15:14)
[2022-04-04 03:41] LABS: UR Microalbumin (mg/L) 51.6 mg/L; Urine Creatinine 35.83 mg/dL; Urine Creatinine Concentration 35.83 mg/dL
[2022-04-04] MEDS: NS 0.9% 1000 ml BAG 1,000 ML IV SCH ×2 (03:41→14:43)
[2022-04-04 04:21] LABS: Uric Acid < 1.7 mg/dL (4.4-7.6)
[2022-04-04 04:25] LABS: Albumin 2.9 g/dL (3.2-5.2); Anion Gap 11 mmol/L (2-11); CO2 Carbon Dioxide 20 mmol/L (22-32); Calcium 7.1 mg/dL (8.6-10.3); Chloride 105 mmol/L (101-111); Potassium 3.8 mmol/L (3.5-5.0); Sodium 136 mmol/L (135-145)
[2022-04-04 04:31] LABS: ALT 50 U/L (7-52); AST 49 U/L (13-39); Albumin/Globulin Ratio 1.4 (1-3); Alkaline Phosphatase 208 U/L (35-149); Blood Urea Nitrogen 68 mg/dL (6-24); Globulin 2.1 g/dL (2-4); Glucose 116 mg/dL (70-100); Phosphorus 11.1 mg/dL (2.5-5.0); eGFR CKD-EPI 25.7 (>60)
[2022-04-04 07:04] LABS: Hematocrit 28 % (42-52); Hemoglobin 9.5 g/dL (14.0-18.0); Mean Corpuscular HGB Conc 34 g/dL (31-36); Mean Corpuscular Hemoglobin 32 pg (27-31); Mean Corpuscular Volume 96 fL (80-94); Mean Platelet Volume 9.5 fL (7.4-10.4); Platelet Count 35 10^3/uL (150-450); Red Blood Count 2.95 10^6 /uL (4.18-5.48); Red Cell Distribution Width 17 % (10-15)
[2022-04-04] MEDS: Furosemide 40 mg/4 ml IV VIAL IV SCH (07:18)
[2022-04-04] MEDS: Heparin 5000 UNITS/ML 1 mL VIAL SUBCUT SCH ×3 (07:19→20:54)
[2022-04-04 09:26] LABS: Anisocytosis 2+
[2022-04-04 09:28] LABS: ABS Basophils 0.8 10^3/ul (0-0.2); ABS Eosinophils 0.2 10^3/ul (0-0.6); ABS Lymphocytes 5.3 10^3/ul (1.0-4.8); ABS Monocytes 72.1 10^3/ul (0-0.8); ABS Neutrophils 3.6 10^3/ul (1.5-7.7); ABS Nucleated RBC 0.2 10^3/ul; Eosinophil % 0.2 %; Lymphocyte % 6.5 %; Nucleated Red Blood Cells % 0.3
[2022-04-04] MEDS ORDERED: NS 0.9% IVPB SCH (12:00)
[2022-04-04] MEDS ORDERED: RASBURICASE IVPB SCH (12:00)
[2022-04-04] MEDS: VENETOCLAX 100 MG PO SCH (14:48)
[2022-04-05] MEDS ORDERED: Furosemide 20 mg/2 ml IV VIAL IV ONE (00:01)
[2022-04-05] MEDS: NS 0.9% 1000 ml BAG 1,000 ML IV SCH (02:13)
[2022-04-05] MEDS: Heparin 5000 UNITS/ML 1 mL VIAL SUBCUT SCH (05:53)
[2022-04-05 06:09] LABS: Hematocrit 27 % (42-52); Hemoglobin 8.9 g/dL (14.0-18.0); Mean Corpuscular HGB Conc 33 g/dL (31-36); Mean Corpuscular Hemoglobin 31 pg (27-31); Mean Corpuscular Volume 94 fL (80-94); Mean Platelet Volume 9.7 fL (7.4-10.4); Platelet Count 30 10^3/uL (150-450); Red Cell Distribution Width 17 % (10-15)
[2022-04-05 06:43] LABS: Albumin 2.9 g/dL (3.2-5.2); Albumin/Globulin Ratio 1.4 (1-3); Globulin 2.1 g/dL (2-4); Phosphorus 8.5 mg/dL (2.5-5.0); Potassium 3.6 mmol/L (3.5-5.0); Total Bilirubin 1.1 mg/dL (0.2-1.0); Uric Acid 2.1 mg/dL (4.4-7.6); eGFR CKD-EPI 29.4 (>60)
[2022-04-05 08:18] LABS: ABS Basophils 0.1 10^3/ul (0-0.2); ABS Lymphocytes 1.9 10^3/ul (1.0-4.8); ABS Monocytes 27.7 10^3/ul (0-0.8); ABS Neutrophils 1.3 10^3/ul (1.5-7.7); ABS Nucleated RBC 0.1 10^3/ul; Eosinophil % 0.1 %; Lymphocyte % 6.2 %; Nucleated Red Blood Cells % 0.4
[2022-04-05 10:21] LABS: RBC Morphology Normal (Normal)
[2022-04-05] MEDS ORDERED: Polyethylene Glycol 3350 17 GM PACKET PO PRN (14:33)
[2022-04-05] MEDS ORDERED: Nystatin TOP POWDER 15 GM BTL TOPICAL SCH (15:30)
[2022-04-05] MEDS: VENETOCLAX 100 MG PO SCH (16:29)
[2022-04-05] MEDS: Polyethylene Glycol 3350 17 GM PACKET PO SCH (16:31)
[2022-04-06] MEDS: Furosemide 20 mg/2 ml IV VIAL IV SCH (04:20)
[2022-04-06 04:54] LABS: Hematocrit 27 % (42-52); Hemoglobin 8.9 g/dL (14.0-18.0); Mean Corpuscular HGB Conc 33 g/dL (31-36); Mean Corpuscular Hemoglobin 31 pg (27-31); Mean Corpuscular Volume 94 fL (80-94); Mean Platelet Volume 9.1 fL (7.4-10.4); Platelet Count 24 10^3/uL (150-450); Red Blood Count 2.85 10^6 /uL (4.18-5.48); Red Cell Distribution Width 17 % (10-15); White Blood Count 12.1 10^3/uL (3.5-10.8)
[2022-04-06 05:44] LABS: ABS Neutrophils 0.5 10^3/ul (1.5-7.7)
[2022-04-06 05:46] LABS: Albumin 2.9 g/dL (3.2-5.2); Albumin/Globulin Ratio 1.3 (1-3); Calcium 7.5 mg/dL (8.6-10.3); Globulin 2.2 g/dL (2-4); Magnesium 2.1 mg/dL (1.9-2.7); Phosphorus 5.8 mg/dL (2.5-5.0); Potassium 3.8 mmol/L (3.5-5.0); Total Bilirubin 1.5 mg/dL (0.2-1.0); Total Protein 5.1 g/dL (6.4-8.9); Uric Acid 2.2 mg/dL (4.4-7.6); eGFR CKD-EPI 35.7 (>60)
[2022-04-06 06:26] LABS: ABS Eosinophils 0.1 10^3/ul (0-0.6); ABS Lymphocytes 1.5 10^3/ul (1.0-4.8); ABS Nucleated RBC 0.1 10^3/ul; Eosinophil % 0.5 %; Lymphocyte % 12.8 %; Nucleated Red Blood Cells % 0.6
[2022-04-06] MEDS: Polyethylene Glycol 3350 17 GM PACKET PO SCH (08:25)
[2022-04-06] MEDS: VENETOCLAX 100 MG PO SCH (14:31)
[2022-04-07] MEDS: Furosemide 20 mg/2 ml IV VIAL IV SCH (05:21)
[2022-04-07 05:49] LABS: Hematocrit 26 % (42-52); Hemoglobin 8.6 g/dL (14.0-18.0); Mean Corpuscular HGB Conc 33 g/dL (31-36); Mean Corpuscular Hemoglobin 32 pg (27-31); Mean Corpuscular Volume 95 fL (80-94); Red Blood Count 2.71 10^6 /uL (4.18-5.48); Red Cell Distribution Width 17 % (10-15); White Blood Count 3.6 10^3/uL (3.5-10.8)
[2022-04-07 06:02] LABS: Albumin 3.1 g/dL (3.2-5.2); Albumin/Globulin Ratio 1.5 (1-3); Calcium 7.9 mg/dL (8.6-10.3); Globulin 2.1 g/dL (2-4); Magnesium 1.9 mg/dL (1.9-2.7); Phosphorus 4.3 mg/dL (2.5-5.0); Potassium 3.7 mmol/L (3.5-5.0); Total Bilirubin 1.7 mg/dL (0.2-1.0); Total Protein 5.2 g/dL (6.4-8.9); Uric Acid 2.7 mg/dL (4.4-7.6); eGFR CKD-EPI 44.6 (>60)
[2022-04-07] MEDS ORDERED: Magnesium Sulfate 2 gm BAG 2 GM/50 ML BAG IVPB ONE (07:00)
[2022-04-07 07:46] LABS: ABS Lymphocytes 0.8 10^3/ul (1.0-4.8); ABS Monocytes 2.5 10^3/ul (0-0.8); ABS Neutrophils 0.3 10^3/ul (1.5-7.7); Eosinophil % 0.6 %; Lymphocyte % 22.9 %; Mean Platelet Volume 8.2 fL (7.4-10.4); Nucleated Red Blood Cells % 0.3; Platelet Count 21 10^3/uL (150-450); RBC Morphology Normal (Normal)
[2022-04-07 08:22] LABS: Direct Bilirubin 0.3 mg/dL (0.03-0.18)
[2022-04-07] MEDS: Polyethylene Glycol 3350 17 GM PACKET PO SCH (10:11)
[2022-04-07] MEDS: VENETOCLAX 100 MG PO SCH (15:50)
[2022-04-08 06:50] LABS: ABS Neutrophils 0.3 10^3/ul (1.5-7.7); Hematocrit 24 % (42-52); Hemoglobin 8.4 g/dL (14.0-18.0); Mean Corpuscular HGB Conc 34 g/dL (31-36); Mean Corpuscular Hemoglobin 33 pg (27-31); Mean Corpuscular Volume 95 fL (80-94); Mean Platelet Volume 7.9 fL (7.4-10.4); Platelet Count 20 10^3/uL (150-450); Red Blood Count 2.58 10^6 /uL (4.18-5.48); Red Cell Distribution Width 17 % (10-15); White Blood Count 1.8 10^3/uL (3.5-10.8)
[2022-04-08 07:40] LABS: Albumin 3.1 g/dL (3.2-5.2); Albumin/Globulin Ratio 1.2 (1-3); Globulin 2.5 g/dL (2-4); Phosphorus 3.9 mg/dL (2.5-5.0); Potassium 3.7 mmol/L (3.5-5.0); Total Bilirubin 1.7 mg/dL (0.2-1.0); Total Protein 5.6 g/dL (6.4-8.9); Uric Acid 2.8 mg/dL (4.4-7.6); eGFR CKD-EPI 47.1 (>60)
[2022-04-08 08:40] LABS: RBC Morphology Normal (Normal)
[2022-04-08 08:43] LABS: ABS Lymphocytes 0.9 10^3/ul (1.0-4.8)
[2022-04-08 08:45] VITALS: BP 113/68
[2022-04-08] MEDS: Polyethylene Glycol 3350 17 GM PACKET PO SCH (08:56)
== END 2022-04-08 13:13 | DRG 834 ==
LOC: ED 09:54 → SUATTDRO 16:10 → EDHOLD 16:10 → MEDTELE 18:16
PROVIDERS: ADMIT Internal Medicine; ATTEND Internal Medicine

== ENCOUNTER 2022-06-05 19:40 | Inpatient (IN) ==
[2022-06-05] MEDS ORDERED: Cefepime 2 GM in Dextrose 2 GM/50 ML BAG IV ONE (20:34)
[2022-06-05] MEDS ORDERED: Lactated Ringers 1000 ml BAG 1,000 ML IV ONE ×2 (20:35→22:47)
[2022-06-05 20:47] LABS: Hematocrit 24 % (42-52); Hemoglobin 8.2 g/dL (14.0-18.0); Mean Corpuscular HGB Conc 34 g/dL (31-36); Mean Corpuscular Hemoglobin 35 pg (27-31); Mean Corpuscular Volume 104 fL (80-94); Mean Platelet Volume 8.4 fL (7.4-10.4); Platelet Count 34 10^3/uL (150-450); Red Blood Count 2.32 10^6 /uL (4.18-5.48); Red Cell Distribution Width 24 % (10-15); White Blood Count 4.4 10^3/uL (3.5-10.8)
[2022-06-05 21:18] LABS: Albumin 3.4 g/dL (3.2-5.2); Albumin/Globulin Ratio 1.5 (1-3); C Reactive Protein 140.04 mg/L (<8.01); Calcium 7.9 mg/dL (8.6-10.3); Globulin 2.3 g/dL (2-4); Potassium 4.3 mmol/L (3.5-5.0); Total Bilirubin 0.7 mg/dL (0.2-1.0); Total Protein 5.7 g/dL (6.4-8.9); Uric Acid 4.9 mg/dL (4.4-7.6); eGFR CKD-EPI 42.6 (>60)
[2022-06-05 21:41] LABS: Anisocytosis 2+; Macrocytosis 2+; Tear Drop Cells 1+
[2022-06-05 21:46] LABS: ABS Lymphocytes 0.6 10^3/ul (1.0-4.8); ABS Monocytes 3.7 10^3/ul (0-0.8); ABS Neutrophils 0.1 10^3/ul (1.5-7.7); Lymphocyte % 12.9 %; Nucleated Red Blood Cells % 0.3
[2022-06-05] MEDS ORDERED: Iodixanol (CONTRAST) 320 MG/ML 100 ML SDV IV ONE (21:55)
[2022-06-05] MEDS ORDERED: Lactated Ringers 1000 ml BAG 1,000 ML IV SCH (23:45)
[2022-06-06] MEDS ORDERED: Senna TAB 8.6 mg TAB PO PRN (00:38)
[2022-06-06] MEDS ORDERED: Magnesium Hydroxide LIQ 30 ML UDC PO PRN (00:38)
[2022-06-06] MEDS ORDERED: Polyethylene Glycol 3350 17 GM PACKET PO PRN (00:38)
[2022-06-06] MEDS ORDERED: Enoxaparin 40 MG/0.4 ML SYR SUBCUT SCH (01:00)
[2022-06-06 06:57] LABS: Blood Urea Nitrogen 21 mg/dL (6-24); CO2 Carbon Dioxide 23 mmol/L (22-32); Calcium 7.9 mg/dL (8.6-10.3); Chloride 105 mmol/L (101-111); Glucose 96 mg/dL (70-100); Sodium 134 mmol/L (135-145); eGFR CKD-EPI 50.4 (>60)
[2022-06-06 07:02] LABS: Hematocrit 23 % (42-52); Hemoglobin 7.7 g/dL (14.0-18.0); Mean Corpuscular HGB Conc 34 g/dL (31-36); Mean Corpuscular Hemoglobin 35 pg (27-31); Mean Corpuscular Volume 104 fL (80-94); Mean Platelet Volume 8.7 fL (7.4-10.4); Platelet Count 34 10^3/uL (150-450); Red Blood Count 2.17 10^6 /uL (4.18-5.48); Red Cell Distribution Width 24 % (10-15); White Blood Count 6.7 10^3/uL (3.5-10.8)
[2022-06-06 07:09] LABS: Anion Gap 6 mmol/L (2-11)
[2022-06-06] MEDS: Magnesium Hydroxide LIQ 30 ML UDC PO SCH ×2 (08:08→21:16)
[2022-06-06] MEDS: Cefepime 2 GM in Dextrose 2 GM/50 ML BAG IV SCH ×2 (08:08→21:16)
[2022-06-06 08:41] LABS: Urine Appearance Clear; Urine Bilirubin Negative (Negative); Urine Blood 2+ (Negative); Urine Color Yellow; Urine Glucose Negative (Negative); Urine Ketones Negative (Negative); Urine Nitrite Negative (Negative); Urine Protein 1+(30 mg/dL) (Negative); Urine Urobilinogen Negative (Negative)
[2022-06-06 08:53] LABS: Anisocytosis 2+; Macrocytosis 1+
[2022-06-06 08:56] LABS: Urine Bacteria Absent (Absent); Urine Red Blood Cell 2+(6-10/hpf) (Absent); Urine White Blood Cell Trace(0-5/hpf) (Absent)
[2022-06-06 09:04] LABS: ABS Lymphocytes 0.7 10^3/ul (1.0-4.8); ABS Monocytes 5.9 10^3/ul (0-0.8); ABS Neutrophils 0.1 10^3/ul (1.5-7.7); Lymphocyte % 10.6 %; Nucleated Red Blood Cells % 0.4
[2022-06-06] MEDS: NS 0.9% 1000 ml BAG 1,000 ML IV SCH (13:25)
[2022-06-06] MEDS: Enoxaparin 40 MG/0.4 ML SYR SUBCUT SCH (21:17)
[2022-06-07] MEDS: NS 0.9% 1000 ml BAG 1,000 ML IV SCH (04:18)
[2022-06-07 05:40] LABS: Hematocrit 24 % (42-52); Hemoglobin 8.2 g/dL (14.0-18.0); Mean Corpuscular HGB Conc 34 g/dL (31-36); Mean Corpuscular Hemoglobin 35 pg (27-31); Mean Corpuscular Volume 104 fL (80-94); Mean Platelet Volume 9.4 fL (7.4-10.4); Platelet Count 41 10^3/uL (150-450); Red Blood Count 2.34 10^6 /uL (4.18-5.48); Red Cell Distribution Width 23 % (10-15); White Blood Count 6.7 10^3/uL (3.5-10.8)
[2022-06-07 06:11] LABS: Albumin/Globulin Ratio 1.4 (1-3); Calcium 7.7 mg/dL (8.6-10.3); Globulin 2.1 g/dL (2-4); Potassium 3.5 mmol/L (3.5-5.0); Total Bilirubin 0.5 mg/dL (0.2-1.0); Total Protein 5.1 g/dL (6.4-8.9); eGFR CKD-EPI 50.8 (>60)
[2022-06-07] MEDS ORDERED: NS 0.9% 1000 ml BAG 1,000 ML IV SCH (07:45)
[2022-06-07] MEDS: Cefepime 2 GM in Dextrose 2 GM/50 ML BAG IV SCH ×2 (08:14→21:41)
[2022-06-07] MEDS: Magnesium Hydroxide LIQ 30 ML UDC PO SCH ×2 (08:17→21:44)
[2022-06-07 08:36] LABS: Anisocytosis 2+
[2022-06-07 08:37] LABS: Acanthocytes 1+; Macrocytosis 1+
[2022-06-07 08:38] LABS: ABS Lymphocytes 1.1 10^3/ul (1.0-4.8); ABS Monocytes 5.5 10^3/ul (0-0.8); ABS Neutrophils 0.1 10^3/ul (1.5-7.7); Nucleated Red Blood Cells % 0.1
[2022-06-07] MEDS: Enoxaparin 40 MG/0.4 ML SYR SUBCUT SCH (21:41)
[2022-06-08 06:14] LABS: Albumin/Globulin Ratio 1.5 (1-3); Calcium 7.6 mg/dL (8.6-10.3); Potassium 3.5 mmol/L (3.5-5.0); Total Bilirubin 0.5 mg/dL (0.2-1.0); eGFR CKD-EPI 55.5 (>60)
[2022-06-08 07:06] LABS: Hematocrit 23 % (42-52); Hemoglobin 8.1 g/dL (14.0-18.0); Mean Corpuscular HGB Conc 36 g/dL (31-36); Mean Corpuscular Hemoglobin 37 pg (27-31); Mean Corpuscular Volume 104 fL (80-94); Platelet Count 36 10^3/uL (150-450); Red Blood Count 2.18 10^6 /uL (4.18-5.48); Red Cell Distribution Width 23 % (10-15); White Blood Count 5.6 10^3/uL (3.5-10.8)
[2022-06-08 07:18] LABS: ABS Lymphocytes 2.1 10^3/ul (1.0-4.8)
[2022-06-08 07:27] LABS: ABS Neutrophils 0.1 10^3/ul (1.5-7.7)
[2022-06-08] MEDS: Magnesium Hydroxide LIQ 30 ML UDC PO SCH (08:17)
[2022-06-08] MEDS: Cefepime 2 GM in Dextrose 2 GM/50 ML BAG IV SCH (08:18)
[2022-06-08 11:28] VITALS: BP 126/80
== END 2022-06-08 12:40 | disposition home or self-care (01) | DRG 809 ==
LOC: EDHOLD 19:40 → ED 19:40 → SUATTDRO 23:16 → EDHOLD 06-06 08:28 → SSU 06-06 09:22 → SUATTDRO 06-07 10:18
PROVIDERS: ADMIT Student in an Organized Health Care Education/Training Program; ATTEND Internal Medicine